=== PATIENT | male | born 1965 | race Caucasian/White ===

== ENCOUNTER → 2016-07-30 11:55 | Outpatient (CLI) | payer MEDICAID | END | disposition home or self-care (01) | LOC: D.MRI 11:55 | DX: R48.2 Apraxia (principal) ==

== ENCOUNTER → 2016-09-11 13:23 | Outpatient (CLI) | payer MEDICAID | END | disposition home or self-care (01) | LOC: D.US 13:23 → D.CT 14:00 | DX: G93.9 Disorder of brain, unspecified (principal) ==

== ENCOUNTER → 2018-08-06 13:56 | Outpatient (CLI) | payer MEDICAID | END | disposition home or self-care (01) | LOC: D.MRI 13:56 | DX: M54.12 Radiculopathy, cervical region (principal) ==

== ENCOUNTER → 2018-09-09 09:11 | Outpatient (CLI) | payer MEDICAID | END | disposition home or self-care (01) | LOC: D.MRI 09:11 | PROVIDERS: ATTEND Orthopaedic Surgery | DX: M25.552 Pain in left hip (principal) ==

== ENCOUNTER → 2019-06-01 12:32 | Outpatient (CLI) | payer MEDICAID | END | disposition home or self-care (01) | LOC: D.CT 12:32 | PROVIDERS: ATTEND Internal Medicine Interventional Cardiology | DX: Q33.0 Congenital cystic lung (principal) ==

== ENCOUNTER → 2020-09-24 17:58 | Outpatient (CLI) | payer BC ==
[2020-08-17 12:02] VITALS: BMI 28.3
[~2020-09-24 17:58] MED LIST: AMITRIPTYLINE H50 MG PO; ARIPIPRAZOLE 5 MG PO; FLOMAX0.4 MG PO; GABAPENTIN300 MG PO; IMITREX100 MG PO; LIPITOR20 MG PO; MECLIZINE HCL25 MG PO; OMEPRAZOLE20 M1 PO; PROZAC20 MG PO
[2020-09-24 19:13] LABS: BASOPHILS 0.7 % (0-2); EOSINOPHILS 2.1 % (0-7); HEMATOCRIT 41.5 % (42.0-54.0); HEMOGLOBIN 13.1 g/dL (13.5-17.5); IMMATURE GRANULOCYTES 0.2 % (0-5); LYMPHOCYTE ABS# 1.97 10x3/uL (1.32-3.57); MCH 27.5 pg (26.0-34.0); MCHC 31.6 g/dL (31.0-37.0); MCV 87.2 fL (80.0-100.0); MEAN PLATELET VOLUME 13.1 fL (7.4-10.4); MONOCYTES 8.4 % (2-11); NEUTROPHIL ABS# 5.98 10x3/uL (1.78-5.38); NEUTROPHILS 66.6 % (40-80); RBC 4.76 10x6/uL (4.20-6.10); RDW 14.5 % (11.5-14.5)
[2020-09-24 19:25] LABS: PLATELET COUNT 218 10x3/uL (130-400)
[2020-09-24 19:54] LABS: ALBUMIN 3.4 g/dL (3.4-5.0); ANION GAP 13.4 mmol/L (8-16); BILIRUBIN - TOTAL 0.37 mg/dL (0.2-1.3); CARBON DIOXIDE 30.5 mmol/L (21.0-32.0); CREATININE - SERUM 1.3 mg/dL (0.6-1.3)
[2020-09-24 19:58] LABS: POTASSIUM - SERUM 2.9 mmol/L (3.5-5.1)
== END | disposition home or self-care (01) ==
LOC: D.LABREF 17:58
PROVIDERS: ATTEND Family Medicine
DX: Z02.0 Encounter for examination for admission to educational institution (principal)

== ENCOUNTER → 2020-09-28 15:53 | Outpatient (CLI) | payer BC ==
[2020-08-17 12:02] VITALS: BMI 28.3
== END | disposition home or self-care (01) ==
LOC: D.LABREF 15:53
PROVIDERS: ATTEND Family Medicine
DX: E87.6 Hypokalemia (principal)

== ENCOUNTER → 2020-10-04 16:31 | Outpatient (CLI) | payer BC ==
[2020-08-17 12:02] VITALS: BMI 28.3
[2020-10-04 16:52] LABS: BASOPHILS 0.8 % (0-2); EOSINOPHILS 1.4 % (0-7); HEMOGLOBIN 12.1 g/dL (13.5-17.5); IMMATURE GRANULOCYTES 0.3 % (0-5); LYMPHOCYTE ABS# 1.16 10x3/uL (1.32-3.57); LYMPHOCYTES 18.3 % (15-50); MCH 27.4 pg (26.0-34.0); MCHC 30.3 g/dL (31.0-37.0); MCV 90.7 fL (80.0-100.0); MONOCYTES 11.5 % (2-11); NEUTROPHIL ABS# 4.28 10x3/uL (1.78-5.38); NEUTROPHILS 67.7 % (40-80); RBC 4.41 10x6/uL (4.20-6.10); RDW 14.5 % (11.5-14.5); WBC 6.3 10x3/uL (4.8-10.8)
[2020-10-04 16:53] LABS: PLATELET COUNT 91 10x3/uL (130-400)
[2020-10-04 17:10] LABS: ANION GAP 18.7 mmol/L (8-16); BILIRUBIN - TOTAL 0.34 mg/dL (0.2-1.3); CALCIUM 8.4 mg/dL (8.5-10.1); CARBON DIOXIDE 24.6 mmol/L (21.0-32.0); CHOL - HDL RATIO 2.3 ratio (2.3-4.9); CREATININE - SERUM 1.2 mg/dL (0.6-1.3); LDL-HDL RATIO 1.1 ratio (1.5-3.5); POTASSIUM - SERUM 3.3 mmol/L (3.5-5.1); PROTEIN - SERUM 6.6 g/dL (6.4-8.2); VALPROIC ACID (DEPAKOTE) 29.8 ug/mL (50.0-100.0)
[2020-10-04 17:17] LABS: PLATELET ESTIMATE DECREASED
== END | disposition home or self-care (01) ==
LOC: D.LABREF 16:31
PROVIDERS: ATTEND Family Medicine
DX: E87.6 Hypokalemia (principal); Z02.0 Encounter for examination for admission to educational institution

== ENCOUNTER → 2020-10-08 21:28 | Outpatient (CLI) | payer BC | END | disposition home or self-care (01) | LOC: D.LABREF 21:28 | DX: R94.6 Abnormal results of thyroid function studies (principal); R41.82 Altered mental status, unspecified ==

== ENCOUNTER → 2020-10-11 15:48 | Outpatient (CLI) | payer BC ==
[2020-08-17 12:02] VITALS: BMI 28.3
[2020-10-11 16:26] LABS: ANION GAP 14.3 mmol/L (8-16); CALCIUM 9.1 mg/dL (8.5-10.1); CARBON DIOXIDE 26.7 mmol/L (21.0-32.0); CREATININE - SERUM 2.6 mg/dL (0.6-1.3)
== END | disposition home or self-care (01) ==
LOC: D.LABREF 15:48
PROVIDERS: ATTEND Family Medicine
DX: Z01.89 Encounter for other specified special examinations (principal)

== ENCOUNTER → 2020-10-17 14:18 | Outpatient (CLI) | payer BC ==
[2020-08-17 12:02] VITALS: BMI 28.3
[2020-10-17 14:26] LABS: ANION GAP 11.7 mmol/L (8-16); CARBON DIOXIDE 28.4 mmol/L (21.0-32.0); CREATININE - SERUM 2.6 mg/dL (0.6-1.3); POTASSIUM - SERUM 5.1 mmol/L (3.5-5.1)
== END | disposition home or self-care (01) ==
LOC: D.LABREF 14:18
PROVIDERS: ATTEND Family Medicine
DX: E87.6 Hypokalemia (principal)

== ENCOUNTER → 2020-12-09 15:57 | Outpatient (CLI) | payer BC ==
[2020-08-17 12:02] VITALS: BMI 28.3
[2020-12-09 16:53] LABS: BILIRUBIN NEGATIVE (NEGATIVE); KETONE SMALL mg/dL (NEGATIVE); NITRITE NEGATIVE (NEGATIVE); UROBILINOGEN NORMAL mg/dL (< 2)
[2020-12-09 16:55] LABS: BACTERIA MANY HPF (NONE SEEN); SQUAMOUS EPITHELIAL NONE SEEN HPF (0-4)
== END | disposition home or self-care (01) ==
LOC: D.LABREF 15:57
PROVIDERS: ATTEND Family Medicine
DX: N39.0 Urinary tract infection, site not specified (principal); R82.79 Other abnormal findings on microbiological examination of urine